=== PATIENT | female | born 1960 | race Caucasian/White ===

== ENCOUNTER 2020-09-20 05:57 | Inpatient (IN) | payer BC ==
[~2020-09-20] VITALS: Ht 160 cm; Wt 74.9 kg
[2020-09-20] MEDS ORDERED: BUPIVACAINE/PF 0.5% ONE (06:44)
[2020-09-20] MEDS ORDERED: GENTAMICIN 80 MG/2 ML ONE (06:44)
[2020-09-20] MEDS ORDERED: EPINEPHRINE 1 MG/ML, 1ML ONE (06:45)
[2020-09-20] MEDS ORDERED: THROMBIN 20,000 UNIT VIAL TP ONE (06:45)
[2020-09-20] MEDS ORDERED: VANCOMYCIN 1,000 MG ONE (06:45)
[2020-09-20] MEDS ORDERED: [UNRECOGNIZED DRUG - CODE] PO (06:54)
[2020-09-20] MEDS ORDERED: CLON1TAB11 PO (06:55)
[2020-09-20] MEDS ORDERED: TRAM50TA2 PO (06:55)
[2020-09-20] MEDS ORDERED: CHLORHEXIDINE 15 ML UDC PO ONE (07:00)
[2020-09-20] MEDS ORDERED: LACTATED RINGERS 1,000 ML IV SCH (07:00)
[2020-09-20 07:09] VITALS: BP 138/91
[2020-09-20 07:18] LABS: BASOPHILS % (AUTO) 1 % (0-1); EOSINOPHILS % (AUTO) 2 % (1-7); LYMPHOCYTES % (AUTO) 39 % (22-44); MEAN CORPUSCULAR HEMOGLOBIN 31.7 pg (27.0-34.8); MEAN CORPUSCULAR HGB CONC 34.7 g/dL (32.4-35.8); MONOCYTES % (AUTO) 8 % (2-9); NEUTROPHILS % (AUTO) 50 % (42-75); PLATELET COUNT 287 x10^3/uL (130-400); RED BLOOD COUNT 4.89 x10^6/uL (3.82-5.3)
[2020-09-20 07:24] LABS: ALANINE AMINOTRANSFERASE 17 U/L (12-78); ALBUMIN 3.7 g/dL (3.4-5.0); ANION GAP 6 mmol/L (5-15); CALCIUM 8.8 mg/dL (8.5-10.1); CHLORIDE 110 mmol/L (98-107); CREATININE 0.59 mg/dL (0.55-1.02)
[2020-09-20 07:26] LABS: ALKALINE PHOSPHATASE 79 U/L (45-117); BILIRUBIN,TOTAL 0.4 mg/dL (0.2-1.0); TOTAL PROTEIN 7.7 g/dL (6.4-8.2)
[2020-09-20 07:28] LABS: INTERNATIONAL NORMALIZED RATIO 0.96 (0.93-1.1); PROTHROMBIN TIME 10.3 Seconds (9.6-11.5)
[2020-09-20] MEDS ORDERED: FENTANYL PF 250 MCG/5ML ONE ×2 (07:45→10:19)
[2020-09-20] MEDS ORDERED: MIDAZOLAM 1 MG/ML, 2ML ONE (07:45)
[2020-09-20] MEDS ORDERED: PROPOFOL 50 ML ONE ×2 (08:09→08:52)
[2020-09-20] MEDS ORDERED: BUPIVACAINE/PF-EPI 0.5% 1:200K INFIL ONE (08:57)
[2020-09-20] MEDS ORDERED: FENTANYL PF 100 MCG/2ML ONE (10:54)
[2020-09-20] MEDS ORDERED: METHOCARBAMOL 1,000 MG in DEXTROSE 5% 100 ML IV PRN (11:00)
[2020-09-20] MEDS ORDERED: hydrALAzine 20 MG/ML, 1ML IV PRN (11:00)
[2020-09-20] MEDS ORDERED: ACETAMINOPHEN 325 MG TABLET PO PRN (11:00)
[2020-09-20] MEDS ORDERED: HYDROmorphone 1 MG/ML, 1ML INJ IVPush PRN (11:00)
[2020-09-20] MEDS ORDERED: ONDANSETRON 2MG/ML, 2ML IVPush PRN (11:00)
[2020-09-20] MEDS ORDERED: FENTANYL PF 100 MCG/2ML IV PRN (11:00)
[2020-09-20] MEDS ORDERED: OXYcodone 5 MG/5 ML ORAL.SOL UDC PO PRN (11:00)
[2020-09-20] MEDS ORDERED: PROMETHAZINE 25 MG/ML, 1ML IVPush PRN (11:00)
[2020-09-20] MEDS ORDERED: MEPERIDINE/PF 25MG/0.5ML IVPush PRN (11:00)
[2020-09-20] MEDS ORDERED: LABETALOL 5MG/ML, 20ML IV PRN (11:00)
[2020-09-20] MEDS ORDERED: LORazepam 2 MG/ML, 1ML IVPush PRN (11:00)
[2020-09-20] MEDS ORDERED: ACETAMINOPHEN 650 MG/20.3 ML UDC ONE (11:35)
[2020-09-20] MEDS ORDERED: OXYcodone 5 MG/5 ML ORAL.SOL UDC ONE (11:35)
[2020-09-20] MEDS ORDERED: DIPHENHYDRAMINE 25 MG CAPSULE PO PRN (13:30)
[2020-09-20] MEDS ORDERED: HYDROcodone/APAP 10/325 MG TABLET PO PRN (13:30)
[2020-09-20] MEDS ORDERED: morphine SULFATE 10 MG/ML, 1ML IV PRN (13:30)
[2020-09-20] MEDS ORDERED: BISACODYL 10 MG SUPP PR PRN (13:30)
[2020-09-20] MEDS ORDERED: DIPHENHYDRAMINE 50 MG/ML, 1ML IM PRN (13:30)
[2020-09-20] MEDS ORDERED: MAGNESIUM HYDROXIDE 8%, 30ML UDC PO PRN (13:30)
[2020-09-20] MEDS ORDERED: DEXAMETHASONE 4 MG/ML, 1ML IV PRN (13:30)
[2020-09-20] MEDS ORDERED: DIPHENHYDRAMINE 50 MG/ML, 1ML IVPush PRN (13:30)
[2020-09-20] MEDS ORDERED: ONDANSETRON 2MG/ML, 2ML IV PRN (13:30)
[2020-09-20] MEDS ORDERED: PROMETHAZINE 25 MG/ML, 1ML IM PRN (13:30)
[2020-09-20 15:00] VITALS: BP 124/83
[2020-09-20] MEDS: NS + 20MEQ KCL 1,000 ML IV SCH ×2 (15:09→23:30)
[2020-09-20] MEDS: HYDROcodone/APAP 5/325 TABLET PO PRN ×2 (16:12→23:34)
[2020-09-20] MEDS: CEFAZOLIN PMX 1GM/50ML 50 ML IVPB SCH (16:46)
[2020-09-20] MEDS ORDERED: METHOCARBAMOL 1,000 MG in DEXTROSE 5% 100 ML IV ONE (17:00)
[2020-09-20 19:50] VITALS: BP 124/82
[2020-09-21 00:11] VITALS: BP 137/88
[2020-09-21] MEDS: CEFAZOLIN PMX 1GM/50ML 50 ML IVPB SCH ×2 (00:42→09:19)
[2020-09-21 04:22] VITALS: BP 123/79
[2020-09-21 07:53] VITALS: BP 123/76
[2020-09-21] MEDS ORDERED: HYDR-2214 PO ×2 (08:55→19:02)
[2020-09-21] MEDS ORDERED: DOCU-131 PO (08:55)
[2020-09-21] MEDS ORDERED: METH-640 PO (08:55)
[2020-09-21] MEDS ORDERED: SENNA/DOCUSATE TABLET PO SCH (09:00)
[2020-09-21] MEDS: HYDROcodone/APAP 5/325 TABLET PO PRN (09:48)
[2020-09-21] MEDS ORDERED: ENOXAPARIN 40 MG/0.4 ML SQ SCH (13:00)
== END 2020-09-21 12:50 | disposition home or self-care (01) | DRG 472 ==
LOC: OUT 05:57 → 4NE 12:02 → OUT 12:21
PROVIDERS: ADMIT Neurological Surgery; ATTEND Neurological Surgery
PROC: 0RB30ZZ Excision of Cervical Vertebral Disc, Open Approach (ICD-10-PCS; 2020-09-20)
PROC: 01N10ZZ Release Cervical Nerve, Open Approach (ICD-10-PCS; 2020-09-20)
PROC: 4A11X4G Monitoring of Peripheral Nervous Electrical Activity, Intraoperative, External Approach (ICD-10-PCS; 2020-09-20)
PROC: 0RG20A0 Fusion of 2 or more Cervical Vertebral Joints with Interbody Fusion Device, Anterior Approach, Anterior Column, Open Approach (ICD-10-PCS; principal; 2020-09-20 08:00)
DX: M48.02 Spinal stenosis, cervical region (principal); M50.021 Cervical disc disorder at C4-C5 level with myelopathy; M50.022 Cervical disc disorder at C5-C6 level with myelopathy; M50.023 Cervical disc disorder at C6-C7 level with myelopathy; M40.202 Unspecified kyphosis, cervical region; M50.121 Cervical disc disorder at C4-C5 level with radiculopathy; M50.122 Cervical disc disorder at C5-C6 level with radiculopathy; M50.123 Cervical disc disorder at C6-C7 level with radiculopathy
CPT/HCPCS: 36415; 72040; S0020; 71045; 80053; 85025; 85610; 85730; 86850; 86900; 93005; 95938; 95941; C1713; G0378; J0171; J0690; J1100; J2250; J2405; J2704; J3010; J3370; J3480; C1762; C1889; J1580; J2800; J7120